=== PATIENT | female | born 1990 | race Caucasian/White ===

== ENCOUNTER 2017-12-28 19:51 | Emergency (ER) | payer BC, OTHER ==
[2017-12-28] MEDS ORDERED: IBUPROFEN 600 MG TAB PO ONE (20:12)
--- NOTE | 2017-12-28 20:41 | EDPHY ---
H & P Stated Complaint: skin infection in groin Time Seen by Provider: 12/28/17 20:41 - Personal History LMP (Females 10-55): 1-7 Days Ago Current Tetanus/Diphtheria Vaccine: Unsure Current Tetanus Diphtheria and Acellular Pertussis (TDAP): Unsure - Medical/Surgical History Hx Asthma: No Hx Chronic Respiratory Disease: No Hx Diabetes: No Hx Cardiac Disease: No Hx Renal Disease: No Hx Cirrhosis: No Hx Alcoholism: No Hx HIV/AIDS: No Hx Splenectomy or Spleen Trauma: No Other PMH: MRSA on arm & butt in 2016 - Social History Smoking Status: Never smoked Constitutional: Initial Vital Signs Temperature (C) 37.2 C 12/28/17 19:56 Heart Rate 90 12/28/17 19:56 Respiratory Rate 16 12/28/17 19:56 Blood Pressure 133/90 H 12/28/17 19:56 O2 Sat (%) 97 12/28/17 19:56 O2 Delivery Mode Room Air Allergies/Adverse Reactions: No Known Allergies Allergy (Unverified 12/28/17 20:48) Home Medications: Medication Instructions Recorded Cephalexin [Keflex (RX)] 500 mg PO TID #30 cap 12/28/17 Sulfamethox/Tmp 800/160 mg 1 tab PO BID #20 tab 12/28/17 [Bactrim Ds] Medical Decision Making ED Course/Re-evaluation: CHIEF COMPLAINT: Abscess and right groin HISTORY OF PRESENT ILLNESS: Healthy 27-year-old female who has read current infections in her groin right and left. She thinks that she gets continued ingrown hairs. She has never needed any surgical I and D. She has had antibiotics for this in the past. She denies fevers or chills or any systemic illness. They abscess on the right groin pain top of the right thigh is somewhat painful today and more red and it started a couple days ago. REVIEW OF SYSTEMS: A 10 point review of systems was performed and is negative with the exception of the elements mentioned in the history of present illness. PHYSICAL EXAM: HR, BP, O2 Sat, RR. Temp noted General Appearance: Alert, well hydrated, appropriate, and non-toxic appearing. Head: Atraumatic without scalp tenderness or obvious injury Eyes: Pupils equal, round, reactive to light and accommodation, EOMI, no trauma , no injection. Ears: Clear bilaterally, no perforation, normal landmarks Nose: Atraumatic, no rhinorrhea, clear. Throat: There is no erythema or exudates, no lesions, normal tonsils, mucus membranes moist. Neck: Supple, 2+ carotid upstroke, nontender, no lymphadenopathy. Respiratory: No retractions, no distress, no wheezes, and no accessory muscle use. Lungs are clear to auscultation bilaterally. Cardiovascular: Regular rate and rhythm, no murmurs, rubs, or gallops. Bilateral carotid, radial, dorsalis pedis, and posterior tibial pulses intact. Good capillary refill all extremities. Gastrointestinal: Abdomen is soft, nontender, non-distended, no masses, no rebound, no guarding, no peritoneal signs. Musculoskeletal: Normal active ROM of all extremities, atraumatic. Neurological: Alert, appropriate, and interactive. The patient has normal DTRs and non-focal cranial nerves, motor, sensory, and cerebellar exam. Skin: Mild to moderate hidradenitis soup board of of the groin. The area she is concerned with his somewhat indurated and erythematous but I not feel any fluctuance or drainable abscess. Otherwise, No rashes, good turgor, no nodules on palpation. Past medical history: None Past surgical history: None Family history: Noncontributory Social history: Single, employed, does not abuse tobacco drugs or alcohol DIFFERENTIAL DIAGNOSIS: Includes but is not limited to: Cutaneous abscess, hidradenitis supportive, hidradenitis anus, cellulitis, Bartholin gland cyst MEDICAL DECISION MAKING: This patient is not systemically ill. This patient has classic hidradenitis supportive of her groin. She has had numerous other infections based on the scarring. I will start her on Keflex 500 mg three times daily and Bactrim DS 1 twice daily. She will follow up with Dr. Jose Elias Clay or in the office this week. - Data Points Medications Given: Discontinued Medications Cephalexin HCl (Keflex) 500 mg PO EDNOW ONE PRN Reason: Protocol Stop: 12/28/17 20:47 Last Admin: 12/28/17 20:57 Dose: 500 mg Ibuprofen (Motrin) 600 mg PO EDNOW ONE Stop: 12/28/17 20:13 Last Admin: 12/28/17 20:17 Dose: 600 mg Trimethoprim/Sulfamethoxazole (Bactrim Ds) 1 ea PO EDNOW ONE PRN Reason: Protocol Stop: 12/28/17 20:47 Last Admin: 12/28/17 20:57 Dose: 1 ea Departure - Departure Disposition: Home, Routine, Self-Care Clinical Impression: Hidradenitis suppurativa Condition: Good Instructions: Hydrocodone/Acetaminophen (By mouth), Hidradenitis Suppurativa ( ED) Additional Instructions: 1. Take Keflex and Bactrim as prescribed. It is important to finish your entire course of antibiotics even if you are feeling better. 2. Take [place] as prescribed as needed for severe pain. 3. Follow up with Dr. Moura, general surgeon. Call tomorrow for an appointment. 4. Return to the emergency department for severe pain, fever, or other worsening of condition. Referrals: Jose Elias Moura MD [Medical Doctor] - As per Instructions Prescriptions: Cephalexin [Keflex (RX)] 500 mg PO TID #30 cap Sulfamethox/Tmp 800/160 mg [Bactrim Ds] 1 tab PO BID #20 tab
[2017-12-28] MEDS ORDERED: CEPHALEXIN 500 MG CAP PO ONE (20:46)
[2017-12-28] MEDS ORDERED: SULFAMETHOX/TMP 800/160 MG 1 TAB PO ONE (20:46)
[2017-12-28] MEDS ORDERED: HYDROCOD/APAP 5/325 PREPACK#6 BTL TAKEHOME ONE ×2 (20:51→20:59)
[2017-12-28 21:15] VITALS: BP 136/94
== END 2017-12-28 21:15 | disposition home or self-care (01) ==
DX: L73.2 Hidradenitis suppurativa (principal)

== ENCOUNTER 2017-12-29 22:02 | Emergency (ER) | payer BC, OTHER ==
--- NOTE | 2017-12-29 22:26 | EDPHY ---
General Time Seen by Provider: 12/29/17 22:22 Narrative: CHIEF COMPLAINT: Thigh pain, abscess HISTORY OF PRESENT ILLNESS: Patient presents with complaints of right thigh pain abscess. She was here yesterday with similar complaint and diagnosed with hidradenitis without abscess. She was prescribed Bactrim and Keflex. She contacted the surgeon today and has been taking his medications. She states that the right thigh as increased in size and pain, double that what it was yesterday. Difficulty ambulating due to pain. She has no fever. No numbness or tingling. No vaginal pain, drainage or complaints. Tetanus up-to-date. REVIEW OF SYSTEMS: Ten systems reviewed and are negative unless otherwise noted in the HPI PCP: None locally SPECIALISTS: Pending appointment with Dr. Jose Elias Moura PAST MEDICAL HISTORY: Uncomplicated PAST SURGICAL HISTORY: No surgical history SOCIAL HISTORY: Nonsmoker. Originally from [place]. [employer] student at this time. She does not work FAMILY HISTORY: Noncontributory EXAMINATION General Appearance: Alert, no distress. Well-developed well-nourished Head: normocephalic, atraumatic Respiratory: No respiratory distress Cardiovascular: Regular rate with good signs of perfusion distally Neurological: A&O, nonfocal, normal gait Skin: Warm and dry. There is multiple area of skin changes in the right medial thigh consistent with hidradenitis and central area of fluctuance with spontaneous drainage. There is no surrounding cellulitis, crepitus, gangrene her subcutaneous emphysema. Extremities: Tenderness in the area of skin changes of the right medial thigh. Range of motion lower extremities symmetric with good signs of perfusion. Psychiatric: Mood and affect normal DIFFERENTIAL DIAGNOSES: Including but not limited to hidradenitis, abscess, cellulitis, folliculitis, ingrown hair MDM: 10:25 p.m. Right thigh/inguinal abscess consistent with hidradenitis. This is significantly changed from previous based on chart review and from patient information. There is now drainable, fluctuant component of the infection. I have ordered 1 dose of intranasal pain medication as she is very apprehensive about this and this will be a painful procedure. 11:13 p.m. Right medial thigh abscess that has been incised and drained without complication and tolerated well. Sterile dressing has been applied. She may leave this in place until her morning appointment with her surgeon lesser symptoms change. We discussed warm compresses, ibuprofen, increasing her medication as above. We discussed ED precautions for redness, warmth, fever or increasing pain. She is comfortable this plan and discharged home stable condition. PROCEDURE: Incision and Drainage Consent: Verbal Location: Right medial thigh and groin Length: 3 cm diameter Complexity: Simple Anesthesia: Local. 1% lidocaine with epinephrine. 7 mL Procedure description: After time-out and good anesthesia, the right medial thigh was draped in common sterile fashion. Using a 15. Blade and made a 1.5 cm incision in direction of lizzette lines. Blunt dissection Expressed: 10 mL, purulent Wound care: Daily dressing changes Follow-up: With general surgeon on SUPERVISION: This patient was independently evaluated without direct involvement of or examination by the attending physician. - History Smoking Status: Never smoked - Objective Vital Signs: Initial Vital Signs Temperature (C) 97.9 F 12/29/17 22:07 Heart Rate 103 H 12/29/17 22:07 Respiratory Rate 16 12/29/17 22:07 Blood Pressure 140/113 H 12/29/17 22:07 O2 Sat (%) 95 12/29/17 22:07 O2 Delivery Mode Room Air Allergies/Adverse Reactions: No Known Allergies Allergy (Verified 12/29/17 22:06) Home Medications: Medication Instructions Recorded Cephalexin [Keflex (RX)] 500 mg PO TID #30 cap 12/28/17 Sulfamethox/Tmp 800/160 mg 1 tab PO BID #20 tab 12/28/17 [Bactrim Ds] Sulfamethox/Tmp 800/160 mg 1 tab PO BID 10 Days tab 12/29/17 [Bactrim Ds] Medications Given: Discontinued Medications Fentanyl (Sublimaze) 100 mcg NASAL EDNOW ONE Stop: 12/29/17 22:38 Last Admin: 12/29/17 22:56 Dose: 100 mcg Departure - Departure Disposition: Home, Routine, Self-Care Clinical Impression: Abscess of right thigh, Hidradenitis suppurativa Condition: Good Instructions: Abscess (ED), Incision and Drainage (ED) Additional Instructions: 1. Daily wound care as discussed 2. Increase her Bactrim to 2 pills by mouth twice daily 3. Keep your appointment with her general surgeon on 4. Return here for any worsening pain, redness, warmth, fever pain Referrals: Jose Elias Moura MD [Medical Doctor] - As per Instructions Prescriptions: Sulfamethox/Tmp 800/160 mg [Bactrim Ds] 1 tab PO BID 10 Days tab
[2017-12-29] MEDS ORDERED: fentaNYL 100 MCG/2 ML INJ NASAL ONE (22:37)
[2017-12-29 23:55] VITALS: BP 129/82
== END 2017-12-29 23:45 | disposition home or self-care (01) ==
PROC: 0H9HXZZ Drainage of Right Upper Leg Skin, External Approach (ICD-10-PCS; principal; 2017-12-29)
DX: L02.415 Cutaneous abscess of right lower limb (principal)
CPT/HCPCS: J3010